=== PATIENT | male | born 1950 | race Caucasian/White ===

== ENCOUNTER 2024-12-04 13:28 | Inpatient (IN) | payer MEDICARE ==
[~2024-12-04] VITALS: Ht 172.7 cm; Wt 85.3 kg
[2024-12-04 14:30] VITALS: BP 138/70; PULSE 63; RESP 18; TEMP 98.3; O2SAT 99
[2024-12-04] MEDS ORDERED: MELATONIN 3 MG TABLET PO PRN (15:00)
[2024-12-04] MEDS ORDERED: DEXTROSE 50%-WATER 25 GM/50 ML SYRINGE IVP PRN (15:00)
[2024-12-04 18:15] LABS: GLUCOMETER DEV NAME(LOC) 2WR.2B; GLUCOSE,POINT OF CARE 134 MG/DL (70-110)
[2024-12-04 20:00] VITALS: BP 126/66; PULSE 76; RESP 18; TEMP 99.2; O2SAT 96
[2024-12-04] MEDS: DOCUSATE SODIUM 250 MG CAPSULE PO SCH (21:04)
[2024-12-04] MEDS: TAMSULOSIN HCL 0.4 MG CAPSULE PO SCH (21:04)
[2024-12-04] MEDS: NYSTATIN 15 GM POWDER BOTTLE TP SCH (21:05)
[2024-12-04 22:23] LABS: APPEARANCE,URINE CLEAR (CLEAR); BILIRUBIN,URINE NEGATIVE (NEGATIVE); COLOR,URINE LIGHT YELLOW (YELLOW); GLUCOSE, URINE (UA) NEGATIVE (NEGATIVE); KETONES,URINE NEGATIVE (NEGATIVE); LEUKOCYTE ESTERASE ,URINE SMALL (NEGATIVE); NITRATE,URINE NEGATIVE (NEGATIVE); OCCULT BLOOD,URINE NEGATIVE (NEGATIVE); PH,URINE 5.5 (5.0-8.0); PROTEIN,URINE TRACE mg/dL (NEGATIVE); UROBILINOGEN,URINE <=1.0 mg/dL (<=1.0)
[2024-12-04 22:31] LABS: BACTERIA,URINE Few /HPF (None Seen); RBC,URINE 0-2 /HPF (0-2); SQUAMOUS EPITHELIAL CELL,UR Rare /LPF (None Seen)
[2024-12-04] MEDS: ETHYL ALCOHOL 62% ANTISEPTIC NASAL SANITIZER 0.6 ML AMPUL NASAL SCH (22:48)
[2024-12-04] MEDS: INSULIN LISPRO 100 UNITS/ML SQ PRN (23:23)
[2024-12-05 00:56] LABS: GLUCOMETER DEV NAME(LOC) 2WR.2B; GLUCOSE,POINT OF CARE 156 MG/DL (70-110)
[2024-12-05 06:30] LABS: BASOPHILS % (AUTO) 0.7 % (0.0-2.0); EOSINOPHILS % (AUTO) 11.2 % (1.0-6.0); HEMATOCRIT 31.7 % (41-53); HEMOGLOBIN 10.7 g/dL (13.5-17.5); LYMPHOCYTES # (AUTO) 0.9 K/uL (1.0-4.8); LYMPHOCYTES % (AUTO) 16.9 % (22.0-44.0); MEAN CORPUSCULAR HEMOGLOBIN 29.7 pg (26.0-34.0); MEAN CORPUSCULAR HGB CONC 33.7 G/dL (31.0-37.0); MEAN CORPUSCULAR VOLUME 88 fL (80-100); MONOCYTES # (AUTO) 0.5 K/uL (0.1-1.0); MONOCYTES % (AUTO) 9.7 % (2.0-9.0); NEUTROPHILS # (AUTO) 3.2 K/uL (1.8-7.7); NEUTROPHILS % (AUTO) 61.5 % (40.0-70.0); PLATELET COUNT (AUTO) 176 K/uL (150-450); RED CELL DISTRIBUTION WIDTH 14.7 % (11.5-14.5); WHITE BLOOD COUNT (AUTO) 5.3 K/uL (4.5-11.0)
[2024-12-05 06:44] LABS: ALANINE AMINOTRANSFERASE 225 U/L (12-78); ALBUMIN 2.6 g/dL (3.4-5.0); ALKALINE PHOSPHATASE 274 U/L (46-116); ANION GAP 7 mmol/L (8-16); ASPARTATE AMINOTRANSFERASE 85 U/L (15-37); BILIRUBIN,TOTAL 0.6 mg/dL (0.1-1.0); CALCIUM, TOTAL 8.5 mg/dL (8.8-10.5); CARBON DIOXIDE 24 mmol/L (22-29); CHLORIDE 102 mmol/L (98-107); CREATININE 0.91 mg/dL (0.60-1.30); GLOMERULAR FILTR. RATE CALC > 60 mL/min (>60); GLUCOSE,RANDOM 129 mg/dL (70-110); POTASSIUM 4.6 mmol/L (3.5-5.1); SODIUM SERUM 133 mmol/L (136-145); TOTAL PROTEIN, SERUM 6.7 g/dL (6.4-8.2); UREA NITROGEN, BLOOD 16 mg/dL (7-18)
[2024-12-05 06:51] LABS: GLUCOMETER DEV NAME(LOC) 2WR.1D; GLUCOSE,POINT OF CARE 132 MG/DL (70-110)
[2024-12-05 08:00] VITALS: BP 144/66; PULSE 75; RESP 19; TEMP 98.2; O2SAT 98
[2024-12-05] MEDS: ASPIRIN 81 MG CHEWABLE TABLET PO SCH (08:04)
[2024-12-05] MEDS: ENOXAPARIN SODIUM 40 MG/0.4 ML PF SYRINGE SQ SCH (08:04)
[2024-12-05] MEDS: VALSARTAN 80 MG TABLET PO SCH (08:04)
[2024-12-05] MEDS: METOPROLOL TARTRATE 50 MG TABLET PO SCH (08:04)
[2024-12-05] MEDS: POLYETHYLENE GLYCOL 3350 17 GM PACKET PO SCH (08:06)
[2024-12-05] MEDS: INFLUENZA VIRUS VACCINE TVS (6MO+) 2024-25/PF 45 MCG/0.5 ML SYRINGE IM. ONE (09:22)
[2024-12-05] MEDS: FAMOTIDINE 20 MG TABLET PO SCH (12:45)
[2024-12-05 13:15] LABS: GLUCOMETER DEV NAME(LOC) 2WR.1D; GLUCOSE,POINT OF CARE 151 MG/DL (70-110)
[2024-12-05 15:50] VITALS: BP 138/66; PULSE 68; RESP 18
[2024-12-05 17:50] LABS: GLUCOMETER DEV NAME(LOC) 2WR.1D; GLUCOSE,POINT OF CARE 141 MG/DL (70-110)
[2024-12-05 21:00] LABS: GLUCOMETER DEV NAME(LOC) 2WR.1D; GLUCOSE,POINT OF CARE 153 MG/DL (70-110)
[2024-12-05 21:22] VITALS: BP 113/52; PULSE 71; RESP 18; TEMP 98.6; O2SAT 96; O2SAT 99
[2024-12-05 21:26] VITALS: O2SAT 96
[2024-12-05 23:59] VITALS: O2SAT 99
[2024-12-06] VITALS (12 sets, daily range): BP systolic 94–131; BP diastolic 44–65; PULSE 58–72; RESP 18–20; TEMP 98.1–98.6; O2SAT 65–98
[2024-12-06] MEDS: DOCUSATE SODIUM 283 MG/5 ML MINI-ENEMA PR SCH (05:51)
[2024-12-06 07:45] LABS: GLUCOMETER DEV NAME(LOC) 2WR.1D; GLUCOSE,POINT OF CARE 135 MG/DL (70-110)
[2024-12-06] MEDS: ACETAMINOPHEN 500 MG TABLET PO PRN (08:56)
[2024-12-06 12:42] LABS: GLUCOMETER DEV NAME(LOC) 2WR.1D; GLUCOSE,POINT OF CARE 160 MG/DL (70-110)
[2024-12-06 17:25] LABS: GLUCOMETER DEV NAME(LOC) 2WR.1D; GLUCOSE,POINT OF CARE 131 MG/DL (70-110)
[2024-12-06 22:21] LABS: GLUCOMETER DEV NAME(LOC) 2WR.1D; GLUCOSE,POINT OF CARE 236 MG/DL (70-110)
[2024-12-07] MEDS ORDERED: INSU100V SQ (03:31)
[2024-12-07] MEDS ORDERED: FAMO20 PO (03:31)
[2024-12-07] MEDS ORDERED: DOCU-412 PO (03:31)
[2024-12-07] MEDS ORDERED: ACET-3385 PO (03:31)
[2024-12-07] MEDS ORDERED: METO50 PO (03:31)
[2024-12-07] MEDS ORDERED: VALS80TA2 PO (03:31)
[2024-12-07] MEDS ORDERED: TAMS0.4C94 PO (03:31)
[2024-12-07] MEDS ORDERED: ASPI-1450 PO (03:31)
[2024-12-07 07:00] LABS: GLUCOMETER DEV NAME(LOC) 2WR.2B; GLUCOSE,POINT OF CARE 114 MG/DL (70-110)
[2024-12-07 08:01] VITALS: BP 147/68; PULSE 68; RESP 18; TEMP 98.9; O2SAT 99
[2024-12-07 10:05] VITALS: O2SAT 99
[2024-12-07 12:30] LABS: GLUCOMETER DEV NAME(LOC) 2WR.2B; GLUCOSE,POINT OF CARE 199 MG/DL (70-110)
[2024-12-07 18:00] LABS: GLUCOMETER DEV NAME(LOC) 2WR.2B; GLUCOSE,POINT OF CARE 143 MG/DL (70-110)
[2024-12-07 20:00] VITALS: BP 123/56; PULSE 71; RESP 20; TEMP 98.4; O2SAT 97
[2024-12-07] MEDS: SULFAMETHOX/TRIMETH 800-160 MG/20 ML SUSPENSION ORAL SYRINGE PO SCH (21:01)
[2024-12-07 22:05] LABS: GLUCOMETER DEV NAME(LOC) 2WR.2B; GLUCOSE,POINT OF CARE 208 MG/DL (70-110)
[2024-12-08 06:56] LABS: GLUCOMETER DEV NAME(LOC) 2WR.2B; GLUCOSE,POINT OF CARE 135 MG/DL (70-110)
[2024-12-08 08:00] VITALS: BP 120/56; PULSE 68; RESP 20; TEMP 97.6; O2SAT 96
[2024-12-08 08:30] VITALS: O2SAT 96
[2024-12-08 10:06] LABS: BASOPHILS % (AUTO) 1.3 % (0.0-2.0); HEMATOCRIT 31.4 % (41-53); HEMOGLOBIN 10.4 g/dL (13.5-17.5); LYMPHOCYTES # (AUTO) 1.1 K/uL (1.0-4.8); LYMPHOCYTES % (AUTO) 20.6 % (22.0-44.0); MEAN CORPUSCULAR HEMOGLOBIN 29.1 pg (26.0-34.0); MEAN CORPUSCULAR VOLUME 88 fL (80-100); MONOCYTES # (AUTO) 0.5 K/uL (0.1-1.0); NEUTROPHILS # (AUTO) 2.7 K/uL (1.8-7.7); NEUTROPHILS % (AUTO) 53.6 % (40.0-70.0); PLATELET COUNT (AUTO) 211 K/uL (150-450); RED BLOOD CELL COUNT(AUTO) 3.56 MIL/uL (4.50-5.90); RED CELL DISTRIBUTION WIDTH 15.2 % (11.5-14.5); WHITE BLOOD COUNT (AUTO) 5.1 K/uL (4.5-11.0)
[2024-12-08 10:07] LABS: EOSINOPHILS % (AUTO) 15.5 % (1.0-6.0)
[2024-12-08 12:36] LABS: GLUCOMETER DEV NAME(LOC) 2WR.1D; GLUCOSE,POINT OF CARE 179 MG/DL (70-110)
[2024-12-08 17:40] LABS: GLUCOMETER DEV NAME(LOC) 2WR.1D; GLUCOSE,POINT OF CARE 134 MG/DL (70-110)
[2024-12-08 20:16] VITALS: BP 122/57; PULSE 69; RESP 18; TEMP 98.2; O2SAT 97
[2024-12-08 21:16] LABS: GLUCOMETER DEV NAME(LOC) 2WR.1D; GLUCOSE,POINT OF CARE 218 MG/DL (70-110)
[2024-12-08 21:51] VITALS: O2SAT 97
[2024-12-09 08:00] VITALS: BP 130/69; PULSE 71; RESP 18; TEMP 98.7; O2SAT 98
[2024-12-09 08:15] LABS: GLUCOMETER DEV NAME(LOC) 2WR.2B; GLUCOSE,POINT OF CARE 129 MG/DL (70-110)
[2024-12-09 09:33] LABS: ALANINE AMINOTRANSFERASE 145 U/L (12-78); ALBUMIN 2.4 g/dL (3.4-5.0); ALKALINE PHOSPHATASE 254 U/L (46-116); ANION GAP 5 mmol/L (8-16); ASPARTATE AMINOTRANSFERASE 51 U/L (15-37); BILIRUBIN,TOTAL 0.3 mg/dL (0.1-1.0); CALCIUM, TOTAL 8.6 mg/dL (8.8-10.5); CARBON DIOXIDE 26 mmol/L (22-29); CHLORIDE 101 mmol/L (98-107); CREATININE 0.98 mg/dL (0.60-1.30); GLOMERULAR FILTR. RATE CALC > 60 mL/min (>60); GLUCOSE,RANDOM 210 mg/dL (70-110); SODIUM SERUM 132 mmol/L (136-145); TOTAL PROTEIN, SERUM 7.1 g/dL (6.4-8.2); UREA NITROGEN, BLOOD 16 mg/dL (7-18)
[2024-12-09] MEDS: LIDOCAINE 5% TRANSDERMAL PATCH TD SCH (10:21)
[2024-12-09 13:25] LABS: GLUCOMETER DEV NAME(LOC) 2WR.2B; GLUCOSE,POINT OF CARE 145 MG/DL (70-110)
[2024-12-09 17:00] LABS: GLUCOMETER DEV NAME(LOC) 2WR.2B; GLUCOSE,POINT OF CARE 146 MG/DL (70-110)
[2024-12-09 20:00] VITALS: BP 138/58; PULSE 71; RESP 20; TEMP 98.1; O2SAT 97
[2024-12-09] MEDS: -LIDODERM PATCH NOTE- MISC SCH (21:00)
[2024-12-09 22:00] LABS: GLUCOMETER DEV NAME(LOC) 2WR.2B; GLUCOSE,POINT OF CARE 172 MG/DL (70-110)
[2024-12-10] MEDS: DOCUSATE SODIUM 283 MG/5 ML MINI-ENEMA PR SCH (06:44)
[2024-12-10 07:21] LABS: GLUCOMETER DEV NAME(LOC) 2WR.1D; GLUCOSE,POINT OF CARE 124 MG/DL (70-110)
[2024-12-10 08:00] VITALS: BP 142/71; PULSE 62; RESP 17; TEMP 98; O2SAT 98
[2024-12-10] MEDS ORDERED: METF-446 PO (11:26)
[2024-12-10] MEDS ORDERED: ATOR40TA71 PO (11:26)
[2024-12-10 12:36] LABS: GLUCOMETER DEV NAME(LOC) 2WR.1D; GLUCOSE,POINT OF CARE 141 MG/DL (70-110)
[2024-12-10 17:50] LABS: GLUCOMETER DEV NAME(LOC) 2WR.1D; GLUCOSE,POINT OF CARE 122 MG/DL (70-110)
[2024-12-10 19:38] VITALS: BP 115/55; PULSE 67; RESP 18; TEMP 97.5; O2SAT 96
[2024-12-10 21:00] LABS: GLUCOMETER DEV NAME(LOC) 2WR.1D; GLUCOSE,POINT OF CARE 151 MG/DL (70-110)
[2024-12-10 21:26] VITALS: O2SAT 96
[2024-12-11] MEDS ORDERED: DOCUSATE SODIUM 283 MG/5 ML MINI-ENEMA PR SCH (05:00)
[2024-12-11 07:05] LABS: GLUCOMETER DEV NAME(LOC) 2WR.2B; GLUCOSE,POINT OF CARE 132 MG/DL (70-110)
[2024-12-11 07:39] LABS: HEMATOCRIT 32.7 % (41-53); HEMOGLOBIN 10.8 g/dL (13.5-17.5); MEAN CORPUSCULAR HGB CONC 33.1 G/dL (31.0-37.0); MEAN CORPUSCULAR VOLUME 88 fL (80-100); PLATELET COUNT (AUTO) 212 K/uL (150-450); RED BLOOD CELL COUNT(AUTO) 3.73 MIL/uL (4.50-5.90); RED CELL DISTRIBUTION WIDTH 15.4 % (11.5-14.5); WHITE BLOOD COUNT (AUTO) 3.9 K/uL (4.5-11.0)
[2024-12-11 07:54] LABS: ALANINE AMINOTRANSFERASE 109 U/L (12-78); ALBUMIN 2.5 g/dL (3.4-5.0); ALKALINE PHOSPHATASE 211 U/L (46-116); ANION GAP 7 mmol/L (8-16); ASPARTATE AMINOTRANSFERASE 36 U/L (15-37); BILIRUBIN,TOTAL 0.2 mg/dL (0.1-1.0); CALCIUM, TOTAL 8.5 mg/dL (8.8-10.5); CARBON DIOXIDE 26 mmol/L (22-29); CHLORIDE 101 mmol/L (98-107); CREATININE 0.91 mg/dL (0.60-1.30); GLOMERULAR FILTR. RATE CALC > 60 mL/min (>60); GLUCOSE,RANDOM 137 mg/dL (70-110); POTASSIUM 4.7 mmol/L (3.5-5.1); SODIUM SERUM 134 mmol/L (136-145); UREA NITROGEN, BLOOD 20 mg/dL (7-18)
[2024-12-11] MEDS: MIDODRINE HCL 5 MG TABLET PO SCH ×2 (07:57→13:00)
[2024-12-11] MEDS: VALSARTAN 40 MG TABLET PO SCH (07:57)
[2024-12-11 08:00] VITALS: BP 137/68; PULSE 61; RESP 19; TEMP 97.8; O2SAT 98
[2024-12-11 09:30] LABS: BAND NEUTROPHILS % (MANUAL) 0 % (0-5)
[2024-12-11] MEDS: MULTIVITAMINS WITH MINERALS, THERAPEUTIC TABLET PO SCH (09:32)
[2024-12-11 09:35] LABS: BASOPHILS % (MANUAL) 2 % (0-2); EOSINOPHILS % (MANUAL) 5 % (1-6); LYMPHOCYTES % (MANUAL) 37 % (22-44); MONOCYTES % (MANUAL) 7 % (2-9); SEGMENTED NEUTROPHILS % 49 % (40-70); TOTAL CELLS COUNTED 100
[2024-12-11 09:36] LABS: RBC MORPHOLOGY COMMENT NORMAL RBC MORPH
[2024-12-11 12:20] LABS: GLUCOMETER DEV NAME(LOC) 2WR.2B; GLUCOSE,POINT OF CARE 154 MG/DL (70-110)
[2024-12-11 13:20] VITALS: BP 132/67; PULSE 65
[2024-12-11 17:20] LABS: GLUCOMETER DEV NAME(LOC) 2WR.2B; GLUCOSE,POINT OF CARE 134 MG/DL (70-110)
[2024-12-11 20:00] VITALS: BP 117/57; PULSE 66; RESP 18; TEMP 97.8; O2SAT 98
[2024-12-12 01:16] LABS: GLUCOMETER DEV NAME(LOC) 2WR.2B; GLUCOSE,POINT OF CARE 230 MG/DL (70-110)
[2024-12-12 06:25] LABS: GLUCOMETER DEV NAME(LOC) 2WR.2B; GLUCOSE,POINT OF CARE 138 MG/DL (70-110)
[2024-12-12 08:05] VITALS: BP 124/56; PULSE 65; RESP 18; TEMP 98.6; O2SAT 97
[2024-12-12 10:07] VITALS: O2SAT 98
[2024-12-12 12:15] LABS: GLUCOMETER DEV NAME(LOC) 2WR.2B; GLUCOSE,POINT OF CARE 160 MG/DL (70-110)
[2024-12-12] MEDS: MIDODRINE HCL 5 MG TABLET PO SCH (13:31)
[2024-12-12 13:34] VITALS: BP 102/48; PULSE 58
[2024-12-12 17:20] LABS: GLUCOMETER DEV NAME(LOC) 2WR.1D; GLUCOSE,POINT OF CARE 122 MG/DL (70-110)
[2024-12-12 20:01] VITALS: BP 135/58; PULSE 66; RESP 18; TEMP 97.9; O2SAT 97
[2024-12-12 21:05] LABS: GLUCOMETER DEV NAME(LOC) 2WR.2B; GLUCOSE,POINT OF CARE 241 MG/DL (70-110)
[2024-12-12 21:32] VITALS: O2SAT 97
[2024-12-13 06:36] LABS: GLUCOMETER DEV NAME(LOC) 2WR.2B; GLUCOSE,POINT OF CARE 124 MG/DL (70-110)
[2024-12-13] MEDS: VALSARTAN 40 MG TABLET PO SCH (07:39)
[2024-12-13 08:05] VITALS: BP 118/69; PULSE 63; RESP 18; TEMP 98.2; O2SAT 98
[2024-12-13 08:42] LABS: ANION GAP 6 mmol/L (8-16); CALCIUM, TOTAL 8.8 mg/dL (8.8-10.5); CARBON DIOXIDE 27 mmol/L (22-29); CHLORIDE 102 mmol/L (98-107); CREATININE 0.95 mg/dL (0.60-1.30); GLOMERULAR FILTR. RATE CALC > 60 mL/min (>60); GLUCOSE,RANDOM 145 mg/dL (70-110); POTASSIUM 4.7 mmol/L (3.5-5.1); SODIUM SERUM 135 mmol/L (136-145); UREA NITROGEN, BLOOD 18 mg/dL (7-18)
[2024-12-13] MEDS: MIDODRINE HCL 5 MG TABLET PO SCH (09:30)
[2024-12-13 11:00] VITALS: O2SAT 98
[2024-12-13 12:10] LABS: GLUCOMETER DEV NAME(LOC) 2WR.2B; GLUCOSE,POINT OF CARE 153 MG/DL (70-110)
[2024-12-13 16:46] LABS: GLUCOMETER DEV NAME(LOC) 2WR.2B; GLUCOSE,POINT OF CARE 107 MG/DL (70-110)
[2024-12-13 20:00] VITALS: BP 123/56; PULSE 64; RESP 18; TEMP 97.4; O2SAT 99
[2024-12-13 21:21] LABS: GLUCOMETER DEV NAME(LOC) 2WR.2B; GLUCOSE,POINT OF CARE 210 MG/DL (70-110)
[2024-12-13 22:51] VITALS: O2SAT 99
[2024-12-14 07:15] LABS: GLUCOMETER DEV NAME(LOC) 2WR.1D; GLUCOSE,POINT OF CARE 141 MG/DL (70-110)
[2024-12-14 08:20] VITALS: BP 113/60; PULSE 74; RESP 18; TEMP 97.4; O2SAT 98
[2024-12-14 09:26] VITALS: BP 87/45; PULSE 55
[2024-12-14] MEDS: NYSTATIN 15 GM POWDER BOTTLE TP SCH (09:29)
[2024-12-14 12:10] LABS: GLUCOMETER DEV NAME(LOC) 2WR.1D; GLUCOSE,POINT OF CARE 172 MG/DL (70-110)
[2024-12-14 13:08] VITALS: BP 122/64; PULSE 62
[2024-12-14 18:26] LABS: GLUCOMETER DEV NAME(LOC) 2WR.1D; GLUCOSE,POINT OF CARE 88 MG/DL (70-110)
[2024-12-14 20:00] VITALS: BP 119/48; PULSE 66; RESP 18; TEMP 98; O2SAT 98
[2024-12-14 21:32] VITALS: BP 116/50; PULSE 60
[2024-12-14 22:38] VITALS: O2SAT 98
[2024-12-15 05:00] LABS: GLUCOMETER DEV NAME(LOC) 2WR.1D; GLUCOSE,POINT OF CARE 185 MG/DL (70-110)
[2024-12-15 07:50] LABS: GLUCOMETER DEV NAME(LOC) 2WR.2B; GLUCOSE,POINT OF CARE 123 MG/DL (70-110)
[2024-12-15 08:00] VITALS: BP 123/60; PULSE 61; RESP 18; TEMP 97.9; O2SAT 99
[2024-12-15 13:40] VITALS: BP 105/62; PULSE 58; RESP 18
[2024-12-15 13:55] VITALS: BP 95/48; PULSE 60
[2024-12-15 14:30] VITALS: BP 106/58; PULSE 59
[2024-12-15 14:41] LABS: GLUCOMETER DEV NAME(LOC) 2WR.2B; GLUCOSE,POINT OF CARE 196 MG/DL (70-110)
[2024-12-15 18:06] LABS: GLUCOMETER DEV NAME(LOC) 2WR.2B; GLUCOSE,POINT OF CARE 106 MG/DL (70-110)
[2024-12-15 20:03] VITALS: BP 123/55; PULSE 70; RESP 18; TEMP 98; O2SAT 98
[2024-12-15 21:31] LABS: GLUCOMETER DEV NAME(LOC) 2WR.2B; GLUCOSE,POINT OF CARE 159 MG/DL (70-110)
[2024-12-16 07:11] LABS: GLUCOMETER DEV NAME(LOC) 2WR.2B; GLUCOSE,POINT OF CARE 124 MG/DL (70-110)
[2024-12-16 08:00] VITALS: BP 129/64; PULSE 62; RESP 18; TEMP 97.7; O2SAT 99
[2024-12-16 09:25] VITALS: BP 119/49; PULSE 62; RESP 18
[2024-12-16 12:30] LABS: GLUCOMETER DEV NAME(LOC) 2WR.2B; GLUCOSE,POINT OF CARE 268 MG/DL (70-110)
[2024-12-16 13:15] VITALS: BP 119/58; PULSE 56; RESP 18
[2024-12-16 17:25] LABS: GLUCOMETER DEV NAME(LOC) 2WR.2B; GLUCOSE,POINT OF CARE 154 MG/DL (70-110)
[2024-12-16 20:51] LABS: GLUCOMETER DEV NAME(LOC) 2WR.1D; GLUCOSE,POINT OF CARE 258 MG/DL (70-110)
[2024-12-16 21:00] VITALS: BP 138/61; PULSE 65; RESP 18; TEMP 98; O2SAT 98
[2024-12-17 07:15] LABS: GLUCOMETER DEV NAME(LOC) 2WR.1D; GLUCOSE,POINT OF CARE 136 MG/DL (70-110)
[2024-12-17 08:00] VITALS: BP 131/63; PULSE 63; RESP 17; TEMP 98.7; O2SAT 99
[2024-12-17 11:46] LABS: GLUCOMETER DEV NAME(LOC) 2WR.2B; GLUCOSE,POINT OF CARE 169 MG/DL (70-110)
[2024-12-17 12:45] VITALS: BP 109/53; PULSE 59; RESP 18; O2SAT 98
[2024-12-17 17:00] LABS: GLUCOMETER DEV NAME(LOC) 2WR.2B; GLUCOSE,POINT OF CARE 120 MG/DL (70-110)
[2024-12-17 20:01] VITALS: BP 131/59; PULSE 59; RESP 18; TEMP 98.1; O2SAT 98
[2024-12-17 21:26] LABS: GLUCOMETER DEV NAME(LOC) 2WR.2B; GLUCOSE,POINT OF CARE 223 MG/DL (70-110)
[2024-12-17 22:49] VITALS: O2SAT 98
[2024-12-18 06:46] LABS: GLUCOMETER DEV NAME(LOC) 2WR.1D; GLUCOSE,POINT OF CARE 126 MG/DL (70-110)
[2024-12-18 09:00] VITALS: BP 103/56; PULSE 66; RESP 18; TEMP 97.9; O2SAT 99
[2024-12-18] MEDS: MIDODRINE HCL 5 MG TABLET PO ONE (10:13)
[2024-12-18 12:16] LABS: GLUCOMETER DEV NAME(LOC) 2WR.2B; GLUCOSE,POINT OF CARE 156 MG/DL (70-110)
[2024-12-18 13:04] VITALS: BP 109/66; PULSE 59
[2024-12-18] MEDS: MetFORMIN HCL 500 MG TABLET PO SCH (16:34)
[2024-12-18 17:55] LABS: GLUCOMETER DEV NAME(LOC) 2WR.1D; GLUCOSE,POINT OF CARE 134 MG/DL (70-110)
[2024-12-18 20:01] VITALS: BP 134/67; PULSE 69; RESP 18; TEMP 97.9; O2SAT 96
[2024-12-18 22:11] LABS: GLUCOMETER DEV NAME(LOC) 2WR.2B; GLUCOSE,POINT OF CARE 186 MG/DL (70-110)
[2024-12-18 23:03] VITALS: O2SAT 97
[2024-12-19 06:31] LABS: GLUCOMETER DEV NAME(LOC) 2WR.1D; GLUCOSE,POINT OF CARE 129 MG/DL (70-110)
[2024-12-19 08:00] VITALS: BP 129/62; PULSE 66; RESP 18; TEMP 97.8; O2SAT 98
[2024-12-19 17:55] LABS: GLUCOMETER DEV NAME(LOC) 2WR.1D; GLUCOSE,POINT OF CARE 123 MG/DL (70-110)
[2024-12-19 20:01] VITALS: BP 115/57; PULSE 63; RESP 18; TEMP 98.2; O2SAT 97
[2024-12-19 20:46] VITALS: O2SAT 97
[2024-12-20 07:06] LABS: GLUCOMETER DEV NAME(LOC) 2WR.2B; GLUCOSE,POINT OF CARE 123 MG/DL (70-110)
[2024-12-20 07:19] LABS: ALANINE AMINOTRANSFERASE 46 U/L (12-78); ALBUMIN 2.8 g/dL (3.4-5.0); ALKALINE PHOSPHATASE 142 U/L (46-116); ANION GAP 6 mmol/L (8-16); ASPARTATE AMINOTRANSFERASE 22 U/L (15-37); BILIRUBIN,TOTAL 0.3 mg/dL (0.1-1.0); CALCIUM, TOTAL 8.9 mg/dL (8.8-10.5); CARBON DIOXIDE 27 mmol/L (22-29); CHLORIDE 103 mmol/L (98-107); CREATININE 0.84 mg/dL (0.60-1.30); GLOMERULAR FILTR. RATE CALC > 60 mL/min (>60); GLUCOSE,RANDOM 121 mg/dL (70-110); POTASSIUM 4.8 mmol/L (3.5-5.1); SODIUM SERUM 136 mmol/L (136-145); TOTAL PROTEIN, SERUM 6.9 g/dL (6.4-8.2); UREA NITROGEN, BLOOD 19 mg/dL (7-18)
[2024-12-20 07:47] LABS: BASOPHILS % (AUTO) 0.8 % (0.0-2.0); EOSINOPHILS % (AUTO) 9.2 % (1.0-6.0); HEMATOCRIT 36.7 % (41-53); HEMOGLOBIN 12.2 g/dL (13.5-17.5); LYMPHOCYTES # (AUTO) 1.6 K/uL (1.0-4.8); LYMPHOCYTES % (AUTO) 31.5 % (22.0-44.0); MEAN CORPUSCULAR HEMOGLOBIN 29.3 pg (26.0-34.0); MEAN CORPUSCULAR HGB CONC 33.2 G/dL (31.0-37.0); MEAN CORPUSCULAR VOLUME 88 fL (80-100); MONOCYTES # (AUTO) 0.2 K/uL (0.1-1.0); MONOCYTES % (AUTO) 4.5 % (2.0-9.0); NEUTROPHILS # (AUTO) 2.7 K/uL (1.8-7.7); PLATELET COUNT (AUTO) 248 K/uL (150-450); RED BLOOD CELL COUNT(AUTO) 4.15 MIL/uL (4.50-5.90); RED CELL DISTRIBUTION WIDTH 15.5 % (11.5-14.5); WHITE BLOOD COUNT (AUTO) 4.9 K/uL (4.5-11.0)
[2024-12-20 08:00] VITALS: BP 122/62; PULSE 68; RESP 18; TEMP 97.7; O2SAT 98
[2024-12-20 09:30] VITALS: BP 91/64; PULSE 71; RESP 18; O2SAT 97
[2024-12-20 13:00] VITALS: BP 97/57; PULSE 61; RESP 19; O2SAT 98
[2024-12-20 13:30] VITALS: BP 116/63; PULSE 58; RESP 18; O2SAT 97
[2024-12-20] MEDS: LIDOCAINE 2% 6 ML JELLY TP ONE (17:03)
[2024-12-20 17:16] LABS: GLUCOMETER DEV NAME(LOC) 2WR.2B; GLUCOSE,POINT OF CARE 142 MG/DL (70-110)
[2024-12-20 20:00] VITALS: O2SAT 97
[2024-12-20 20:13] VITALS: BP 124/63; PULSE 65; RESP 18; TEMP 98.2; O2SAT 97
[2024-12-21] MEDS ORDERED: NYST15PO3 TP (02:31)
[2024-12-21] MEDS ORDERED: POLY17PO47 PO (02:31)
[2024-12-21] MEDS ORDERED: ENOX40SY14 SQ (02:31)
[2024-12-21] MEDS ORDERED: LIDO700A15 TP (02:31)
[2024-12-21] MEDS ORDERED: MIDO5TAB29 PO ×2 (02:31)
[2024-12-21] MEDS ORDERED: MELA3TAB89 PO (02:51)
[2024-12-21] MEDS ORDERED: DOCU283E PR (03:15)
[2024-12-21 07:36] LABS: GLUCOMETER DEV NAME(LOC) 2WR.2B; GLUCOSE,POINT OF CARE 114 MG/DL (70-110)
[2024-12-21 08:00] VITALS: BP 132/73; PULSE 67; RESP 18; TEMP 97.6; O2SAT 97
[2024-12-21 09:30] VITALS: BP 114/55; PULSE 62; RESP 18
[2024-12-21 13:00] VITALS: BP 87/50; PULSE 57; RESP 18
[2024-12-21 13:35] VITALS: BP 100/49; PULSE 61; RESP 18
[2024-12-21 14:32] VITALS: BP 143/60; PULSE 57; RESP 18
[2024-12-21 17:30] LABS: GLUCOMETER DEV NAME(LOC) 2WR.1D; GLUCOSE,POINT OF CARE 148 MG/DL (70-110)
[2024-12-21 20:00] VITALS: BP 147/70; PULSE 64; RESP 20; TEMP 98.3; O2SAT 97
[2024-12-22 07:06] LABS: GLUCOMETER DEV NAME(LOC) 2WR.1D; GLUCOSE,POINT OF CARE 126 MG/DL (70-110)
[2024-12-22 08:05] VITALS: BP 110/76; PULSE 78; RESP 18; TEMP 98; O2SAT 98
[2024-12-22 11:28] VITALS: O2SAT 98
[2024-12-22 13:10] VITALS: BP 128/64; PULSE 68; RESP 18; TEMP 98.2; O2SAT 98
[2024-12-22 16:55] LABS: GLUCOMETER DEV NAME(LOC) 2WR.2B; GLUCOSE,POINT OF CARE 112 MG/DL (70-110)
[2024-12-22 20:10] VITALS: BP 119/57; PULSE 79; RESP 18; TEMP 97.7; O2SAT 96
[2024-12-23 00:01] VITALS: O2SAT 96
[2024-12-23 06:20] LABS: GLUCOMETER DEV NAME(LOC) 2WR.2B; GLUCOSE,POINT OF CARE 111 MG/DL (70-110)
[2024-12-23 08:30] VITALS: BP 131/59; PULSE 68; RESP 19; TEMP 97.8; O2SAT 97
[2024-12-23 13:30] VITALS: BP 90/50; PULSE 68
[2024-12-23 17:46] LABS: GLUCOMETER DEV NAME(LOC) 2WR.1D; GLUCOSE,POINT OF CARE 132 MG/DL (70-110)
[2024-12-23 20:00] VITALS: BP 139/64; PULSE 66; RESP 20; TEMP 97.8; O2SAT 98
[2024-12-24] MEDS: BISACODYL 10 MG RECTAL RECTAL SUPPOSITORY PR SCH (05:10)
[2024-12-24 07:21] LABS: GLUCOMETER DEV NAME(LOC) 2WR.2B; GLUCOSE,POINT OF CARE 110 MG/DL (70-110)
[2024-12-24 08:00] VITALS: BP 118/62; PULSE 65; RESP 18; TEMP 97.5; O2SAT 98
[2024-12-24 12:49] VITALS: BP 143/51; PULSE 61; RESP 18; TEMP 98.1; O2SAT 98
[2024-12-24 17:26] LABS: GLUCOMETER DEV NAME(LOC) 2WR.1D; GLUCOSE,POINT OF CARE 100 MG/DL (70-110)
== END 2024-12-24 19:40 | DRG 98 ==
LOC: 2WR 15:50 → AHU 12-16 14:36 → 2WR 12-16 14:45
PROVIDERS: ADMIT Physical Medicine & Rehabilitation; ATTEND Physical Medicine & Rehabilitation
DX: G37.3 Acute transverse myelitis in demyelinating disease of central nervous system (principal); E46 Unspecified protein-calorie malnutrition; G82.20 Paraplegia, unspecified; E11.9 Type 2 diabetes mellitus without complications; E66.9 Obesity, unspecified; F32.9 Major depressive disorder, single episode, unspecified; I10 Essential (primary) hypertension; I25.10 Atherosclerotic heart disease of native coronary artery without angina pectoris; N31.9 Neuromuscular dysfunction of bladder, unspecified; N40.1 Benign prostatic hyperplasia with lower urinary tract symptoms; J10.1 Influenza due to other identified influenza virus with other respiratory manifestations; R33.8 Other retention of urine; Z74.09 Other reduced mobility; E78.5 Hyperlipidemia, unspecified; I95.1 Orthostatic hypotension; R74.01 Elevation of levels of liver transaminase levels; R26.9 Unspecified abnormalities of gait and mobility; Z88.0 Allergy status to penicillin; Z95.1 Presence of aortocoronary bypass graft; Z68.28 Body mass index [BMI] 28.0-28.9, adult
CPT/HCPCS: 80048; 80053; 81001; 82962; 85025; 87077; 87081; 87086; 87186; 94760; 97110; 97112; 97163; 97167; 97530; 97535; 99366; J1650; 36415-L1; 36415-TC; X3926; X4104; Z7610